=== PATIENT | female | born 1960 | race Caucasian/White ===

== ENCOUNTER → 2016-07-07 | Outpatient (CLI) | payer OTHER ==
--- NOTE | 2016-07-07 14:26 | DIAGNOSTIC IMAGING REPORT ---
RIGHT HAND MIN 3 VIEWS ROUTINE CLINICAL HISTORY: Rheumatoid arthritis. Osteoarthritis. COMPARISON: None. DISCUSSION: The bony mineralization appears normal for age. There are no fractures or dislocations. There is no erosive disease. There are minimal osteoarthritic changes. IMPRESSION: Minimal degenerative change. No evidence of fracture. No erosive changes identified Electronically signed by: Misha Henry M.D. 07/07/2016 2:24 PM Dictated Date/Time: 07/07/2016 2:23 PM
--- NOTE | 2016-07-07 14:28 | DIAGNOSTIC IMAGING REPORT ---
LEFT HAND 3 VIEWS CLINICAL HISTORY: Rheumatoid arthritis. FINDINGS: 3 views of left hand are obtained. No prior studies are available for comparison at the time of dictation. The skeletal structures appear well mineralized. No fracture is seen. No erosive arthropathy is identified. Minimal osteoarthritic change is noted involving the interphalangeal joints, distal greater than proximal. The overlying soft tissues are within normal limits. IMPRESSION: Minimal osteoarthritic change as above. No acute bony abnormality is identified. Electronically signed by: Jeff Guevara M.D. 07/07/2016 2:25 PM Dictated Date/Time: 07/07/2016 2:25 PM
[2016-07-07 15:40] LABS: BASO % 0.5 %; BASO ABS # 0.04 K/uL (0-0.2); COMPLETE YES; EOS % 0.9 %; HEMATOCRIT 45.1 % (37-47); IG% 0.3 %; LYMPH % 47.3 %; LYMPH ABS # 3.54 K/uL (1.2-3.4); MEAN CELL VOLUME 97.8 fL (80-100); MEAN CORPUSCULAR HEMOGLOBIN 33.8 pg (25-34); MEAN CORPUSCULAR HGB CONC 34.6 g/dl (32-36); MEAN PLATELET VOLUME 11.7 fL (7.4-10.4); MONO % 7.5 %; NEUT % 43.5 %; PLATELET COUNT 275 K/uL (130-400); RED BLOOD COUNT 4.61 M/uL (4.2-5.4); WHITE BLOOD COUNT 7.48 K/uL (4.8-10.8)
[2016-07-07 16:07] LABS: ALT/SGPT 127 U/L (12-78); AST/SGOT 76 U/L (15-37)
[2016-07-07 16:13] LABS: ALKALINE PHOSPHATASE 106 U/L (45-117); TOTAL IRON BINDING CAPACITY 412 mcg/dl (250-450)
[2016-07-13 07:43] LABS: ANTI-CENTROMERE AB <1.0 NEG AI (<1.0 NEG); ANTI-SS-A <1.0 NEG AI (<1.0 NEG); ANTI-SS-B <1.0 NEG AI (<1.0 NEG); DNA ds CRITHIDIA NEGATIVE (NEGATIVE); MYELOPEROXIDASE AB <1.0 AI (<1.0); Sm Antibody <1.0 NEG AI (<1.0 NEG)
== END | disposition home or self-care (01) ==
LOC: C.RAD1850 13:51
PROVIDERS: ATTEND Internal Medicine Rheumatology
DX: M35.00 Sjogren syndrome, unspecified (principal); M15.9 Polyosteoarthritis, unspecified; M48.06 Spinal stenosis, lumbar region; M79.1 Myalgia; Z87.39 Personal history of other diseases of the musculoskeletal system and connective tissue